=== PATIENT | female | born 1975 | race Caucasian/White ===

== ENCOUNTER → 2016-09-18 | Outpatient (CLI) | payer BC | LOC: BMCIMAGING 07:46 | DX: Z12.31 Encounter for screening mammogram for malignant neoplasm of breast (principal); N83.201 Unspecified ovarian cyst, right side; D25.9 Leiomyoma of uterus, unspecified | CPT/HCPCS: G0202 ==

== ENCOUNTER 2016-12-25 05:53 | Observation (INO) | payer BC ==
[2016-12-25] MEDS ORDERED: ceFAZolin 2 GM/DEXTROSE 100 ML IV ONE (06:03)
[2016-12-25] MEDS ORDERED: LIDOCAINE 1% 2 ML INJ ID PRN (06:04)
[2016-12-25] MEDS: LR 1,000 ML IV SCH ×2 (06:16→12:38)
[2016-12-25] MEDS ORDERED: METHYLENE BLUE 0.5% 50 MG/10 ML AMP ONE (06:43)
[2016-12-25] MEDS ORDERED: BUPIVACAINE 0.25% 30 ML SDV ONE (06:43)
[2016-12-25] MEDS ORDERED: VASOPRESSIN 20 UNIT/ML VIAL ONE (06:43)
[2016-12-25] MEDS ORDERED: MIDAZOLAM 2 MG/2 ML VIAL IVP ONE (07:13)
--- NOTE | 2016-12-25 07:13 | PDANEPAE ---
ANE History of Present Illness Fibroid ANE Past Medical History - Cardiovascular History Hx Hypertension: No Hx Arrhythmias: No Hx Chest Pain: No Hx Coronary Artery / Peripheral Vascular Disease: No Hx CHF / Valvular Disease: No Hx Palpitations: No Cardiovascular History Comment: syncope in Jun 2014- due to low sodium intake- none recently - Pulmonary History Hx COPD: No Hx Asthma/Reactive Airway Disease: Yes Hx Recent Upper Respiratory Infection: No Hx Oxygen in Use at Home: No Hx Sleep Apnea: No Sleep Apnea Screening Result - Last Documented: Negative Pulmonary History Comment: exercise induced asthma-uses inhaler 5x/yr - Neurologic History Hx Cerebrovascular Accident: No Hx Seizures: No Hx Dementia: No - Endocrine History Hx Diabetes: No - Renal History Hx Renal Disorders: No - Liver History Hx Hepatic Disorders: No - Neurological & Psychiatric Hx Hx Neurological and Psychiatric Disorders: No - Cancer History Hx Cancer: No - Congenital Disorder History Hx Congenital Disorders: No - GI History Hx Gastrointestinal Disorders: No - Other Health History Other Health History: Cramping muscular fibroids, polyps-uterus - Chronic Pain History Chronic Pain: Yes ("feels like back labor,cramping") - Surgical History Prior Surgeries: none ANE Review of Systems - Exercise capacity METS (RN): 5 METS ANE Patient History - Allergies Allergies/Adverse Reactions: No Known Allergies Allergy (Verified 12/15/16 15:54) - Home Medications Home Medications: NK [No Known Home Meds] 04/04/14 [Last Taken Unknown] - NPO status NPO Since - Liquids (Date): 12/24/16 NPO Since - Liquids (Time): 20:30 NPO Since - Solids (Date): 12/24/16 NPO Since - Solids (Time): 19:30 - Anes Hx Anes Hx: no prior problems - Smoking Hx Smoking Status: Never smoked - Family Anes Hx Family Hx Anesthesia Complications: Mother from DVT after bladder bx ANE Labs/Vital Signs - Vital Signs Blood Pressure: 121/82 Heart Rate: 56 Respiratory Rate: 16 O2 Sat (%): 95 Height: 165.1 cm Weight: 70.307 kg ANE Physical Exam - Airway Neck exam: FROM Mallampati Score: Class 1 Mouth exam: normal dental/mouth exam - Pulmonary Pulmonary: no respiratory distress - Cardiovascular Cardiovascular: regular rate and rhythym - ASA Status ASA Status: II ANE Anesthesia Plan Anesthesia Plan: general endotracheal anesthesia
[2016-12-25] MEDS ORDERED: LIDOCAINE 2% 5 ML SDV ONE (07:19)
[2016-12-25] MEDS ORDERED: ROCURONIUM 50 MG/5 ML VIAL ONE ×2 (07:19→09:11)
[2016-12-25] MEDS ORDERED: PROPOFOL 200 MG/20 ML VIAL ONE (07:20)
[2016-12-25] MEDS ORDERED: fentaNYL 100 MCG/2 ML INJ ONE ×3 (07:20→11:27)
--- NOTE | 2016-12-25 07:26 | PDHPUP ---
History & Physical Update H&P update statement: This history and physical update is based on an assessment of the patient which was completed after admission or registration (within 24 hours), but prior to the surgery/procedure. H&P update: H&P reviewed & patient examined (Pt reports spotting only since our last visit. CBC normal. UA not collected - pt asymptomatic. Will wait for results and if negative, will roll back to the OR.), no change in patient's condition since H&P completed
[2016-12-25] MEDS ORDERED: PROPOFOL/EMULSION 500 MG/50 ML BOTTLE IV ONE (07:45)
[2016-12-25 07:57] LABS: COLOR YELLOW; LEUKOCYTE ESTERASE,URINE NEGATIVE (NEGATIVE); NITRITE,URINE NEGATIVE (NEGATIVE)
[2016-12-25] MEDS ORDERED: ONDANSETRON DISINTEGRATING 4 MG TAB PO PRN (08:08)
[2016-12-25] MEDS ORDERED: ONDANSETRON 4 MG/2 ML VIAL IVP PRN ×3 (08:08→11:27)
[2016-12-25] MEDS ORDERED: HYDROCODONE/APAP 5/325 TAB PO PRN (08:08)
[2016-12-25] MEDS ORDERED: KETOROLAC 30 MG/1 ML SDV IVP ONE ×2 (08:08→13:00)
[2016-12-25] MEDS ORDERED: LR 1,000 ML IV SCH (08:30)
[2016-12-25] MEDS ORDERED: DEXAMETHASONE 4 MG/ML VIAL ONE (10:08)
[2016-12-25] MEDS ORDERED: HYDROmorphONE/DILAUDID 1 MG/ML SYR IVP PRN ×2 (10:14→11:27)
[2016-12-25] MEDS ORDERED: fentaNYL 100 MCG/2 ML INJ IVP PRN ×2 (10:14→11:27)
[2016-12-25] MEDS ORDERED: NALOXONE HCL 0.4 MG/ML INJ IVP PRN ×2 (10:14→11:27)
[2016-12-25] MEDS ORDERED: PROMETHAZINE HCL 25 MG/ML INJ IVP PRN ×2 (10:14→11:27)
[2016-12-25] MEDS ORDERED: SUGAMMADEX SODIUM 200 MG/2 ML VIAL IVP ONE (10:22)
--- NOTE | 2016-12-25 10:58 | POSTANESTH ---
Post Anesthetic Evaluation Cardiovascular Status: Normal, Stable Respiratory Status: Normal, Stable Level of Consciousness/Mental Status: Can Participate in Eval Pain Control: Adequate, Prn Tx Ordered Nausea/Vomiting Control: Adequate, Prn Tx Ordered Complications Possibly Related to Anesthesia: None Noted
--- NOTE | 2016-12-25 13:11 | POSTOPPROG ---
Post Op Note Date of Operation: 12/25/16 Surgeon: Perri Ritchie Compliance Review Officer: Millie Richardson MD Anesthesiologist: MD Victor Hugo Anesthesia: GET(General Endotracheal) Pre-op Diagnosis: Symptomatic fibroid uterus Post-op Diagnosis: MISTY Indication: Symptomatic fibroid uterus failed medical therapy Procedure: LAVH, bilateral salpingectomy Findings: Large, fibroid uterus Inf/Abcess present in the surg proc area at time of surgery?: No Depth: Organ Space EBL: 50-100 Total fluids administered: 900 cc Complications: none Drains: Other (velasquez to gravity) Specimen(s): Uterus, cervix and bilateral fallopian tubes.
[2016-12-25] MEDS ORDERED: KETOROLAC 30 MG/1 ML SDV ONE (18:59)
[2016-12-25] MEDS: KETOROLAC 30 MG/1 ML SDV IVP PRN (19:05)
[2016-12-26] MEDS: KETOROLAC 30 MG/1 ML SDV IVP PRN ×2 (00:52→07:25)
[2016-12-26 04:49] LABS: HEMATOCRIT 36.3 % (38.0-47.0); HEMOGLOBIN 12.2 g/dL (12.6-16.3)
[2016-12-26] MEDS ORDERED: IBUPROFEN 600 MG TAB PO SCH (08:10)
--- NOTE | 2016-12-26 10:02 | SOAPPROG ---
SOAP Progress Note Assessment/Plan: Assessment: 41 y/o POD#1 s/p LAVH/salpingectomy - hemodynamically stable and doing well Plan: Discharge home RX for norco and motrin F/U in 2 weeks 12/26/16 10:01 Subjective: Pt is ambulating, voiding, passing flatus, pain well controlled and no complaints. Pt having dark red vaginal discharge, using one pad for more than 4 hours. Objective: Vital Signs Temp Pulse Resp BP Pulse Ox 37 C 70 14 118/78 97 12/26/16 07:42 12/26/16 07:42 12/26/16 07:42 12/26/16 07:42 12/26/16 07:42 Laboratory Results 12/26/16 04:04 12/25/16 12/26/16 12/27/16 05:59 05:59 05:59 Intake Total 1050 Output Total 1750 Balance -700 - Time Spent With Patient Time Spent With Patient: 20 minutes - Pending Discharge Pending Discharge Within 24 Hours: Yes Pending Discharge Date: 12/27/16 Pending Discharge Time: 11:00 Physical Exam - Physical Exam General Appearance: WD/WN, alert, no apparent distress Respiratory: lungs clear Cardiac/Chest: regular rate, rhythm Abdomen: normal bowel sounds, non-tender, soft, other (incisions c/d/i, bandages dry.) ICD10 Worksheet Patient Problems: Problems Problem Status Onset Status post laparoscopic assisted vaginal hysterectomy (LAVH) Acute - ICD10 Problem Qualifiers (1) Status post laparoscopic assisted vaginal hysterectomy (LAVH)
[2016-12-26 11:08] VITALS: BP 99/68; PULSE 54; RESP 16; TEMP 99; O2SAT 96
--- NOTE | 2016-12-26 18:44 | GDS ---
[f rep st] DISCHARGE SUMMARY ADMISSION DIAGNOSIS: Symptomatic fibroid uterus. DISCHARGE DIAGNOSIS: Symptomatic fibroid uterus, status post laparoscopic hysterectomy. HOSPITAL COURSE: Patient is a 41-year-old female, who underwent an uncomplicated laparoscopic vagin al-assisted hysterectomy with no immediate complications. She did very well postoperatively. Her p ain was well controlled overnight with Toradol. She met her due-to-void easily after her Shell cath eter was removed. She had stable vital signs overnight, and her postop hematocrit was 36. She had excellent urine output. She has a small amount of dark red vaginal discharge which was appropriate. The patient met all criteria for discharge. DISCHARGE DIET: Regular. DISCHARGE ACTIVITY: Pelvic rest for 6 weeks and no strenuous activity or heavy lifting for 2 weeks. Follow up with Dr. Ritchie in 2 weeks. /[id number]/MODL
--- NOTE | 2016-12-26 22:00 | GOP ---
[f rep st] OPERATIVE REPORT DATE OF OPERATION: 12/25/2016 SURGEON: Perri Ritchie MD REGISTERED PUBLIC SURVEYOR: Millie Richardson MD ANESTHESIA: General. PREOPERATIVE DIAGNOSIS: Symptomatic fibroid uterus. Failed medical management. POSTOPERATIVE DIAGNOSIS: Symptomatic fibroid uterus. Failed medical management. PROCEDURE PERFORMED: 1. Laparoscopic-assisted vaginal hysterectomy. 2. Bilateral salpingectomy. 3. Diagnostic cystoscopy. FINDINGS: 1. Exam under anesthesia revealed an anteverted uterus that is enlarged and nodular with good desce nt noted. 1. Intraoperative findings revealed an enlarged nodular uterus with a large fibroid noted inferiorl y and slightly to the right side. Her ovaries and fallopian tubes appeared normal bilaterally. Her cystoscopy revealed a normal bladder cavity with bilateral ostia seen clearly with indigo with meth ylene blue dye. 2. SPECIMENS: Uterus, cervix and bilateral fallopian tubes. ESTIMATED BLOOD LOSS: 900 cc. INDICATIONS: The patient is a 41-year-old female with a large fibroid uterus and she is symptomatic with significant pain that has failed medical management. She strongly desires definitive manageme nt with hysterectomy. DESCRIPTION OF PROCEDURE: The patient was taken to the operating room, where general anesthesia was found to be adequate. The patient was prepared and draped in normal sterile fashion in the dorsal lithotomy position. A speculum was placed in the patient's vagina. A Garcia retractor and a single-t ooth tenaculum was placed on the anterior lip of the cervix. A Edie uterine manipulator was placed into the cervix to provide a means to manipulate the uterus. The speculum was removed. Attention was then turned to the patient's abdomen. Local anesthetic used was 0.25% Marcaine plain. Local anesthetic was then injected in the umbilical site. A 5 mm vertical skin incision was made with a scalpel. A Veress needle was placed through this incision into the peritoneal cavity while t enting the abdominal wall. Intraperitoneal placement was confirmed with use of a water-filled syrin ge and appropriate entry CO2 gas pressures. The abdomen was then insufflated with CO2 gas until a p ressure of 15 mmHg was reached. The Veress needle was removed. A 5 mm trocar was placed through th is incision into the peritoneal cavity under direct visualization using an Optiview trocar. The pat ient was then placed in Trendelenburg positioning. A 5 mm skin incision was made 2 cm superior and anterior to the anterior iliac spine on the left side after injection of local anesthetic. A trocar was placed through this incision into the abdominal cavity under direct visualization with the lapa roscope. In a similar fashion, a trocar was placed on the right side. The abdomen and pelvis were surveyed. The left fallopian tube was then grasped and excised with the mesosalpinx with the gyrus cautery. The round ligament and utero-ovarian ligament were then coagulated and transect ed with the gyrus. The broad ligament and uterine arteries were then coagulated and transected on t he left side. The bladder flap was then dissected easily by transecting the anterior peritoneal fla p anteriorly across from the left to the right side with good surgical planes noted. Hemostasis was noted. Attention was then turned to the patient's right side. The fallopian tube was grasped and dissected away from its attachments laterally to medially and then the dissection was continued coag ulating and transecting the round ligament, utero-ovarian ligament, cardinal ligaments and uterine a rteries. Hemostasis was noted. All gas was then allowed to escape from the abdomen. Instruments w ere removed. The trocars were left in place. Attention was then turned to the patient's vagina. The Edie uterine manipulator was removed and a weighted speculum was placed in the patient's vagina and a curved [place] used to visualize the cervix clearly. The cervix was grasped with 2 tenaculum. The cervix was then injected circumferentially with a mixture of vasopressin and normal saline. Th e vaginal mucosa was then incised with the Bovie circumferentially. The posterior cul-de-sac was th en entered sharply with the Rey scissors. A stitch was placed with 0 Vicryl approximating the post erior peritoneum with the vaginal cuff. A large weighted speculum was then placed through this inci david into the peritoneal cavity. Attention was then turned to the anterior dissection where the pub ocervical fascia was dissected away from the bladder anteriorly with the Metzenbaum scissors with ea sy dissection into the peritoneal cavity. The curved [place] was then placed through this incision i nto the peritoneal cavity with good visualization and appropriate placement confirmed. The uterosac ral ligaments were then clamped, transected, and suture ligated bilaterally with 0 Vicryl suture. T he remaining pedicles were then clamped, transected, and suture ligated bilaterally with 0 Vicryl. The uterus was then detached from all of its pedicles and removed from the surgical field. All pedi cles were examined closely and hemostasis was obtained with the use of the Bovie and [address] itch on the patient's right side. Hemostasis was assured. The vaginal cuff was then closed with a running lock stitch in a horizontal fashion from her left to right side with incorporation of the pe ritoneum in the closure as much as possible. The vagina was irrigated and hemostasis was assured. Attention was then turned to the patient's bladder. The Shell catheter was removed and a 70 degree cystoscope was placed into the patient's bladder easi ly and bilateral ureteral efflux was noted from the ureteral orifices bilaterally with methylene tay e seen. The bladder cavity appeared normal. The cystoscope was removed and Shell replaced in the b ladder. Attention was then turned to the patient's abdomen where all pedicles were re-examined and the pelvi s was irrigated with copious amounts of normal saline and hemostasis was obtained with 1 small bit o f bleeding controlled with the gyrus along the patient's right side along the pedicle line. Hemosta sis was then confirmed and all instruments were removed from the patient's abdomen. The CO2 gas was allowed to escape. All skin incisions were then closed with 4-0 Monocryl with Steri-Strips and ban dage dressings placed. All sponge, lap, and needle counts correct x2. The patient was transferred to the PACU in stable an d good condition. COMPLICATIONS: None. DRAINS: Shell to gravity. URINE OUTPUT: 75 cc. Estimated blood loss 75 cc. /[id number]/MODL
== END 2016-12-26 12:12 | disposition home or self-care (01) ==
LOC: F3E 05:53
PROVIDERS: ADMIT Obstetrics & Gynecology; ATTEND Obstetrics & Gynecology
PROC: 0UT94ZZ Resection of Uterus, Percutaneous Endoscopic Approach (ICD-10-PCS; principal; 2016-12-25 07:30)
PROC: 0UTC4ZZ Resection of Cervix, Percutaneous Endoscopic Approach (ICD-10-PCS; principal; 2016-12-25 07:30)
PROC: 0UT74ZZ Resection of Bilateral Fallopian Tubes, Percutaneous Endoscopic Approach (ICD-10-PCS; principal; 2016-12-25 07:30)
DX: D25.9 Leiomyoma of uterus, unspecified (principal)
CPT/HCPCS: 58554; G0378; J0690; J1100; J1885; J2250; J2704; J3010; Q9968

== ENCOUNTER → 2018-05-26 | Outpatient (CLI) | payer BC | LOC: CIMAGING 07:14 | PROVIDERS: ATTEND Obstetrics & Gynecology | DX: R19.8 Other specified symptoms and signs involving the digestive system and abdomen (principal) | CPT/HCPCS: 76856-PO ==